=== PATIENT | female | born 1985 | race Caucasian/White ===

== ENCOUNTER 2021-08-14 11:54 | Emergency (ER) | payer BC, OTHER ==
[~2021-08-14] VITALS: Ht 170.2 cm; Wt 74.8 kg
--- NOTE | 2021-08-14 12:05 | NUR ---
To ER bed 2, BIB ra c/o vaginal bleeding abd abdominal cramping, c/section on 08/03, worsening bleeding x2days. Connected to monitor, changed into a gown
[2021-08-14] MEDS ORDERED: ONDANSETRON HCL/PF 4 MG/2 ML VIAL ONE (12:25)
[2021-08-14] MEDS ORDERED: MORPHINE SULFATE INJ 4 MG/ML DISP.SYRIN ONE ×2 (12:26→14:11)
[2021-08-14] MEDS ORDERED: IV NS 0.9% 1,000 ML BAG IV ONE (12:30)
[2021-08-14] MEDS ORDERED: MORPHINE SULFATE INJ 2 MG/ML DISP.SYRIN IV ONE ×3 (12:30→17:00)
[2021-08-14] MEDS ORDERED: ONDANSETRON HCL/PF 4 MG/2 ML VIAL IVP ONE (12:30)
--- NOTE | 2021-08-14 12:55 | NUR ---
THE PATIENT IS TAKEN TO CT
[2021-08-14] MEDS ORDERED: IOHEXOL-300 100 ML VIAL IV ONE (13:01)
[2021-08-14] MEDS ORDERED: IV NS 0.9% 250 ML IV ONE (13:01)
[2021-08-14 13:06] LABS: BASOPHILS % (AUTO) 0.2 % (0.0-2.0); EOSINOPHILS % (AUTO) 0.2 % (0.0-6.0); HEMATOCRIT 32 % (33-45); HEMOGLOBIN 10.2 g/dL (11.5-14.8); LYMPHOCYTES # (AUTO) 1.4 K/uL (0.8-4.8); LYMPHOCYTES % (AUTO) 6.6 % (20.0-44.0); MEAN CORPUSCULAR HGB CONC 32 g/dl (31.0-36.0); MEAN CORPUSCULAR VOLUME 86 fL (82-100); MONOCYTES # (AUTO) 0.7 K/uL (0.1-1.30); MONOCYTES % (AUTO) 3.3 % (2.0-12.0); NEUTROPHILS # (AUTO) 19.1 K/uL (1.8-8.9); NEUTROPHILS % (AUTO) 89.7 % (43.0-81.0); PLATELET COUNT (AUTO) 428 K/uL (150-450); RED BLOOD CELL COUNT(AUTO) 3.74 MIL/uL (4.0-5.2); WHITE BLOOD COUNT (AUTO) 21.3 K/uL (4.3-11.0)
[2021-08-14 13:33] LABS: BILIRUBIN,DIRECT 0.1 mg/dL (0.0-0.2); BILIRUBIN,TOTAL 0.4 mg/dL (0.2-1.0); CALCIUM, SERUM 8.4 mg/dL (8.5-10.1); TOTAL PROTEIN, SERUM 6.6 g/dL (6.4-8.2)
--- NOTE | 2021-08-14 13:40 | NUR ---
URINE COLLECTED AND SENT TO LAB
--- NOTE | 2021-08-14 13:40 | NUR ---
US AT BEDSIDE
[2021-08-14] MEDS ORDERED: PREN1TAB81 PO (14:57)
[2021-08-14 15:06] LABS: BILIRUBIN,URINE LARGE (NEGATIVE); COLOR,URINE RED (YELLOW); LEUKOCYTE ESTERASE ,URINE Large (NEGATIVE); NITRITE, URINE Negative (NEGATIVE); PH,URINE 6.5 (5.0-8.0); PROTEIN,URINE >=300 mg/dl (NEGATIVE); UGLUCOSE Negative (NEGATIVE)
[2021-08-14 15:20] LABS: BACTERIA,URINE Few /HPF (None Seen); RBC,URINE TOO NUMEROUS TO COUN /HPF (0-2); SQUAMOUS EPITHELIAL CELL,UR Few /HPF (None Seen)
--- NOTE | 2021-08-14 15:39 | NUR ---
CALLED DR. SALCEDO [phone] IS WORKING ON TRANSFERING PT TO [facility] WILL LET US KNOW WHEN BED AVAILABLE.
--- NOTE | 2021-08-14 15:45 | NUR ---
covid swab done and sent
--- NOTE | 2021-08-14 15:59 | NUR ---
FAXED CLINICALS TO [facility] [phone] TO [place] [facility] [phone]
--- NOTE | 2021-08-14 16:31 | NUR ---
CALLED [facility] FOR TRANSFER ALS ETA [phone]
--- NOTE | 2021-08-14 16:32 | NUR ---
CALLED [facility] FOR TRANSPORT ETA [phone]
--- NOTE | 2021-08-14 16:41 | NUR ---
[facility] CALLED [facility] WILL TRANSPORT ETA 60 MINS. PLEASE CALL [phone] FOR REPORT.
[2021-08-14 17:00] VITALS: BP 112/62
--- NOTE | 2021-08-14 17:05 | NUR ---
REPORT GIVEN TO JENNIFER STEPHENS FOR [facility]
--- NOTE | 2021-08-14 17:20 | NUR ---
ETHAN AT BEDSIDE TAKING REPORT PT GOING TO (5OR) FROM ER TRANSPORT CODE [address] SALC[address]O
[2021-08-14] MEDS ORDERED: MORPHINE SULFATE INJ 2 MG/ML DISP.SYRIN ONE ×2 (17:23→17:25)
--- NOTE | 2021-08-14 17:25 | NUR ---
PICKED UP BY [facility] TO TRANSFER TO [facility] FOR [facility]
== END 2021-08-14 18:15 | disposition short-term general hospital (02) ==
LOC: ER 11:59
DX: O72.2 Delayed and secondary postpartum hemorrhage (principal); I97.621 Postprocedural hematoma of a circulatory system organ or structure following other procedure; Z20.822 Contact with and (suspected) exposure to COVID-19; D64.9 Anemia, unspecified; D72.829 Elevated white blood cell count, unspecified
CPT/HCPCS: 36415; 74177; 76856; 80048; 80076; 81001; 84703; 85025; 85730; 86850; 87086; 87426; 96361; 96374; 96375; 96376; 99291; C9803; J2270 ×3; J2405; J7050; Q9967